=== PATIENT | female | born 1940 | race Two or more races ===

== ENCOUNTER 2017-10-15 09:09 | Day surgery (SDC) | payer MEDICARE, OTHER ==
--- NOTE | 2017-10-11 16:09 | Pre-Procedure Note/Attestation ---
Pre-Procedure Note/Attestation Complete Prior to Procedure Planned Procedure: bilateral Procedure Narrative: 1- Ptosis correction upper lids. 2- Entropion correction upper lids. 3-Blepharoplasty uppers lids. 4-conjunctivoplasty with amniotic membrane graft, both eyes. 5-pterygium resection with amniotic membrane graft,both eyes. 6- symblepharon removal with amniotic membrane graft, both eyes. 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 3-Blepharochalasis upper lids 4- Conjunctivochalasis, both eyes. 5-pterygium, both eyes. 6-symblepharon, both eyes. Attestation I attest that I discussed the nature of the procedure; its benefits; risks and complications; and alternatives (and the risks and benefits of such alternatives ), prior to the procedure, with the patient (or the patient's legal physician relations representative). I attest that, if there was a reasonable possibility of needing a blood transfusion, the patient (or the patient's legal physician relations representative) was given the [facility] standardized written summary, pursuant to the Héctor Gt Blood Safety Act ([place] Health and Safety Code # 1645, as amended). I attest that I re-evaluated the patient just prior to the surgery and that there has been no change in the patient's H&P, except as documented below: BAILEY DAVID Oct 11, 2017 16:09
[~2017-10-15] VITALS: Ht 165.1 cm; Wt 84.8 kg
[2017-10-15] VITALS (8 sets, daily range): BP systolic 186–213; BP diastolic 89–104
[~2017-10-15 09:09] MED LIST: Akten 3.5% 1ml Btl BOTH EYES ONE; Maxitrol Opth Oint 3.5gm BOTH EYES ONE
[2017-10-15] MEDS ORDERED: Sterile Water Irrig 1000ml IRRIG ONE (09:10)
[2017-10-15] MEDS ORDERED: Midazolam 2mg/2ml Inj ONE (09:10)
[2017-10-15] MEDS ORDERED: LR 1000ml ONE (09:10)
[2017-10-15] MEDS ORDERED: NS Irrig 1000ml ONE (09:10)
[2017-10-15] MEDS ORDERED: guaiFENesin DM 100mg/5ml ORAL PRN (10:15)
[2017-10-15] MEDS ORDERED: ADVAIR 100-501 EACH INH (10:27)
[2017-10-15] MEDS ORDERED: KLONOPIN0.5 MG ORAL (10:27)
[2017-10-15] MEDS ORDERED: XARELTO10 MG ORAL (10:27)
[2017-10-15] MEDS ORDERED: ATORVASTATIN CA40 MG ORAL (10:27)
[2017-10-15] MEDS ORDERED: LISINOPRIL20 MG ORAL (10:27)
[2017-10-15] MEDS ORDERED: METOLAZONE2.5 MG PO (10:27)
[2017-10-15] MEDS ORDERED: BACLOFEN10 MG ORAL (10:27)
[2017-10-15] MEDS ORDERED: FUROSEMIDE40 MG ORAL (10:27)
[2017-10-15] MEDS ORDERED: MAGNESIUM200 M1 PO (10:27)
[2017-10-15] MEDS ORDERED: Tetracaine 0.5% Opth 4ml Soln ONE (11:37)
[2017-10-15] MEDS ORDERED: Bupivacaine 0.75% 30ml vial INJ ONE (11:38)
[2017-10-15] MEDS ORDERED: Lidocaine 2% 20mg/ml/EPI 0.01mg/ml 20ml ONE (11:38)
[2017-10-15] MEDS ORDERED: Povidone-Iodine 5% opth solution ONE (12:03)
--- NOTE | 2017-10-15 12:21 | Anethesia Preoperative Eval ---
Anesthesia Pre-op PMH/ROS General Date of Evaluation: Oct 15, 2017 Time of Evaluation: 11:47 Anesthesiologist: Breanna ASA Score: ASA 3 Mallampati Score Class I : Soft palate, uvula, fauces, pillars visible Class II: Soft palate, uvula, fauces visible Class III: Soft palate, base of uvula visible Class IV: Only hard plate visible Mallampati Classification: Class III Surgeon: Rylee Diagnosis: Bilateral ptosis, pterygium Surgical Procedure: Bilateral blepharoplasty, pterygium, conjunctivaplast Allergies: Coded Allergies: No Known Allergies (Unverified , 10/11/17) Past Medical History Cardiovascular: Reports: HTN, CAD, arrhythmia - Afib, CHF Neurologic/Psychiatric: Denies: dementia, CVA, depression/anxiety, TIA, other Endocrine: Denies: DM, hypothyroidism, steroids, other Hematology/Immune: Denies: anemia, DVT, bleeding disorder, other Musculoskeletal/Integumentary: Reports: OA PMH Narrative: HTN, CAD, Afib, severe , CHF, PUD, lipidemia PSxH Narrative: JAY, TKR, cholecystectomy Anesthesia Pre-op Phys. Exam Physician Exam Last Vital Signs Date Time Temp Pulse Resp B/P (MAP) Pulse Ox O2 Delivery O2 Flow Rate FiO2 10/15/17 10:00 98.2 78 18 190/89 96 Room Air Constitutional: NAD Neurologic: CN 2-12 intact Cardiovascular: RRR Respiratory: CTA Gastrointestinal: S/NT/ND Airway Exam Mallampati Score: Class III MO: full ROM: full Dentures: upper, lower Anesthesia Pre-op A/P Labs WNL Studies Pre-op Studies: EKG - Afib, poor R wave progression, septal abnormality Risk Assessment & Plan Assessment: Patient with severe aortic stenosis, Afib and CHF Plan: MAC, mild sedation, maintain elevated BP Status Change Before Surgery: No Pre-Antibiotics Drug: None CRISTINE MORENO M.D. Oct 15, 2017 12:21
--- NOTE | 2017-10-15 12:22 | Immediate Post-Op Evaluation ---
Immediate Post-Op Evalulation Immediate Post-Op Evalulation Procedure: Bilateral blepharoplasty, pterygium, conjunctivaplasty Date of Evaluation: Oct 15, 2017 Time of Evaluation: 14:03 IV Fluids: 500 Blood Pressure Systolic: 191 Blood Pressure Diastolic: 104 Pulse Rate: 80 Respiratory Rate: 23 O2 Sat by Pulse Oximetry: 96 Temperature (Fahrenheit): 98.3 Pain Score (1-10): 3- Will treat with Fentanyl and Tylenol Nausea: No Vomiting: No Complications No complication Patient Status: awake, patent, none Hydration Status: adequate Drug: None CRISTINE MORENO M.D. Oct 15, 2017 12:22
[2017-10-15] MEDS ORDERED: LR 1000ml 1,000 ML IVLG SCH (13:53)
--- NOTE | 2017-10-15 13:54 | Discharge Summary ---
Discharge Summary Discharge Summary Discharge Summary DATE OF ADMISSION: 10/15/2017 DATE OF DISCHARGE: 10/05/2017 REASON FOR HOSPITALIZATION: SURGERY PERFORMED: 1-pterygium 2- sumblepharon excision 3- conjunctivoplasty 4- entropion correction 5- ptosis correction 6- blepharoplasty CONDITION IN THE HOSPITAL:The patient tolerated the surgery without complications. DISCHARGE CONDITION: The patient was stable at discharge. DISCHARGE MEDICATIONS: 1. Vigamox eye drops one drop q.i.d, OU 2. Prednisolone one drop q d OU 3. Maxitrol eye ointment apply to lids 4- Keflex tab q8h POSTOPERATIVE ORDERS: The patient has to rest at home. No bending, No lifting, No watching Television tonight. POSTOPERATIVE FOLLOW UP: The patient will be followed in my office tomorrow morning at 7 o'clock. BAILEY DAVID Oct 15, 2017 13:54
--- NOTE | 2017-10-15 13:56 | 48 Hour Post Anesthesia Eval ---
Post Anesthesia Evaluation Procedure: Bilateral blepharoplasty, pterygium, conjunctivaplasty Date of Evaluation: Oct 15, 2017 Time of Evaluation: 14:30 Blood Pressure Systolic: 193 0: 97 Pulse Rate: 76 Respiratory Rate: 14 O2 Sat by Pulse Oximetry: 95 Airway: patent Nausea: No Vomiting: No Pain Intensity: 1 Hydration Status: adequate Cardiopulmonary Status: Stable Mental Status/LOC: patient returned to baseline Follow-up Care/Observations: As per surgery Post-Anesthesia Complications: No anesthetic complication Follow-up care needed: N/A CRISTINE MORENO M.D. Oct 15, 2017 13:56
--- NOTE | 2017-10-15 13:59 | Brief Operative Note ---
Immediate Post Operative Note Operative Note Chief Complaint: Droopy eyelids difficulty reading sharp pain and alec ayes Pre-op Diagnosis: 1- Blepharoptosis upper lids 2-Entropion upper lids. 3-Blepharochalasis upper lids 4- Conjunctivochalasis, both eyes. 5-pterygium, both eyes. 6-symblepharon, both eyes. Procedure: 1- Pterygium excision, OU 2-Symblepharone excision, left eye 3- conjunctivoplasty, OU 4- Amniotic membrane graft OU 5- Entropion correction, OU 6- Blepharoptosis correction, O7- Blepharoplast, upper lids, OU Post-op Diagnosis: same as pre-op Surgeon: Bailey Mckee Staple Shear Operator: None Additional Surgeons: None Anesthesiologist: DR. Carlos Anesthesia: MAC Specimen: none Complications: none Condition: stable Fluids: 600 ml Estimated Blood Loss: minimal Drains: none Implant(s) used?: BAILEY Sutherland Oct 15, 2017 13:58
[2017-10-15] MEDS ORDERED: LR 1000ml 1,000 ML IV SCH (14:00)
[2017-10-15] MEDS ORDERED: fentaNYL 100 mcg/2 mL IV PRN (14:00)
--- NOTE | 2017-10-16 08:15 | Operative Note - Dictated ---
DATE OF OPERATION: 10/15/2017 NOTE: "POOR AUDIO" FACILITY: [facility]. SURGEON: Clay Mckee M.D. MANAGEMENT TECHNICIAN: None. ANESTHESIOLOGIST: Héctor Carlos M.D. ANESTHESIA: Monitored anesthesia care (MAC) plus local anesthesia with lidocaine with epinephrine 1:100,000 plus Marcaine 0.75%. PREOPERATIVE DIAGNOSES: 1. Ptosis upper lids both eyes. 2. Entropion upper lids both eyes. 3. Dermatochalasis and blepharochalasis upper lids both eyes. 4. Pterygium bilaterally. 5. . 6. Conjunctivochalasis. POSTOPERATIVE DIAGNOSES: 1. Ptosis upper lids both eyes. 2. Entropion upper lids both eyes. 3. Dermatochalasis and blepharochalasis upper lids both eyes. 4. Pterygium bilaterally. 5. . 6. Conjunctivochalasis. SURGERY PERFORMED: 1. Pterygium excision bilaterally with amniotic membrane graft. 2. excision. 3. Conjunctivoplasty with amniotic membrane graft. 4. Ptosis correction. 5. Entropion correction. 6. Blepharoplasty, upper lids. INDICATION FOR SURGERY: The patient is a 76-year-old lady with history of hypertension, asthma, history of GI bleeding, hyperlipidemia, atrial fibrillation, . The patient is not a smoker and is not drinker. The patient is not allergic to any medication. The patient is taking medication including valsartan 80 mg, Xarelto 20 mg, furosemide, potassium, atorvastatin, clonazepam, omeprazole, and latanoprost. She had cataract surgery in both eyes in the past and trabeculectomy for glaucoma surgery in both eyes. Now, she is complaining of foreign body sensation, sharp pain, blurry vision, redness, discharge, , droopy eyelid, difficulty watching TV, and reading. She is suffering from severe conjunctivochalasis, pterygium, and . She is also suffering from droopy eyelids, dermatochalasis, blepharoptosis, and blepharochalasis. This problem is progressive dermatochalasis of skin disease with resulting changes of a corneal curvature and, which induced astigmatism, which covering of visual axis, which is interruption for driving and watching TV. The severity of the patient's dermatochalasis, ptosis, entropion, and conjunctivochalasis has been clearly demonstrated on enclosed photos and the patient's visual beltran. The only solution for this patient is correction of all the disfigurement and anatomy changes with surgery. INFORMED CONSENT: The nature of the surgery, risks, benefits, potential complications and alternatives were all explained in detail to the patient in her language Farsi. She voiced understanding. The potential complications including, but not limited to bleeding, infection, corneal exposure, over correction, under correction, ecchymosis, swelling of the face, hematoma, dry eye syndrome, loss of eyelashes, loss of eyebrows, inequality of both eyes, change in vision, even loss of vision, and loss of the eye were all explained in detail to the patient, who voiced understanding and accepted all the complications. Also, recurrent of pterygium was explained to the patient. Then, the patient accepted all the issues. Then, she signed the consent form, which is in the chart. DESCRIPTION OF SURGERY AND FINDINGS: Following that, the patient was taken to the operation room in a stable condition. Lidocaine gel, Akten were applied to the conjunctiva of both eyes. Following that, the upper eyelids were marked with a marking pen 10 mm above the root of the eyelashes and 10 mm below the lower part of the eyebrows. About 25 mm of the skin was left to facilitate the eye closure. IV sedation was given by the anesthesiologist, Dr. Carlos. After adequate anesthesia and sedation has been achieved, the upper eyelids, eyebrows, and lower eyelids and conjunctivae were anesthetized with 2% lidocaine and epinephrine 1:100,000. Following that, a speculum was placed in the right eye. The pterygium was excised from the sclerae and the extra conjunctiva was removed and the was removed. Following that, amniotic membrane was placed on the sclerae and glued by Tisseel glue to the sclerae. Following that, the conjunctiva was glued to the amniotic membrane. Same procedure was repeated in the left eye. Following that, the eyelid, eyebrow, and forehead was anesthetized with 2% lidocaine mixed with Marcaine 0.75%, 50/50. Following that, using a Bovie knife, the skin and subdermal tissue was dissected from the orbicularis oculi muscle and excised. Cuts were made into the orbicularis oculi muscle. Following that, hemostasis was performed. The two fat compartments were released. The fat compartments were sculptured conservatively. Following that, the levator palpebrae superioris tendon was dissected to the aponeurosis of the muscle and aponeurosis of the muscle tacked 6 mm and stitched with 6-0 Vicryl and the sutures were trimmed. Following that, a wedge groove was made 3 mm above the root of the upper eye lashes. Following that, the tarsal material inside the groove was removed and the lids of the groove was stitched with 6-0 Vicryl and eyelid border rotated upward and lashes were turned from downwards to upwards. Following that, the orbicularis oculi muscle was stitched and hemostasis was performed. At the end of surgery, the skin was stitched with 6-0 plain gut bilaterally. The patient tolerated the surgery without complications. At the end of the surgery, Maxitrol eye ointment was applied to the wound and inside the eye. Following that, the patient was transferred to the recovery room. In the recovery room, the wound was checked for bleeding, there was no bleeding. Cold compresses were applied to the eye. Postoperative orders and directions were given to the patient. The patient will be discharged home upon stabilization. The patient will be followed in my office tomorrow morning. Antibiotic Keflex was given with the eye drops, Maxitrol eye ointment. Clay Mckee M.D. DR: ULICES JOB#: [id number] CC:
== END 2017-10-15 15:20 | disposition home or self-care (01) ==
LOC: SUR 09:09
DX: H02.403 Unspecified ptosis of bilateral eyelids (principal); H02.004 Unspecified entropion of left upper eyelid; H02.001 Unspecified entropion of right upper eyelid; H11.003 Unspecified pterygium of eye, bilateral; H11.823 Conjunctivochalasis, bilateral; H02.34 Blepharochalasis left upper eyelid; H02.31 Blepharochalasis right upper eyelid; E78.5 Hyperlipidemia, unspecified; Z79.01 Long term (current) use of anticoagulants; I11.0 Hypertensive heart disease with heart failure; I50.9 Heart failure, unspecified; I25.10 Atherosclerotic heart disease of native coronary artery without angina pectoris; M19.90 Unspecified osteoarthritis, unspecified site; Z90.49 Acquired absence of other specified parts of digestive tract; Z96.659 Presence of unspecified artificial knee joint; Z87.11 Personal history of peptic ulcer disease; I35.0 Nonrheumatic aortic (valve) stenosis
CPT/HCPCS: 15822; 65426; 67924; 68320; J2250; J3010; J3490; J7120; 94003; 94150